=== PATIENT | male | born 1950 | race Caucasian/White ===

== ENCOUNTER 2019-12-25 11:02 | Inpatient (IN) | payer OTHER, MEDICARE ==
[2019-12-25 11:51] VITALS: BMI 25.2
[2019-12-25] MEDS ORDERED: chlordiazePOXIDE HCL 10 MG CAPSULE PO PRN (12:13)
[2019-12-25] MEDS ORDERED: MENTHOL/PHENOL 1 EACH UD MM PRN (12:13)
[2019-12-25] MEDS ORDERED: MAG HYDROX/AL HYDROX/SIMETH 30 ML UNIT-DOSE CUP PO PRN (12:13)
[2019-12-25] MEDS ORDERED: MAGNESIUM HYDROX 2400MG/30ML ORAL SUSPENSION 30 ML CUP PO PRN (12:13)
[2019-12-25] MEDS ORDERED: MAGNESIUM CITRATE 300 ML BOTTLE PO PRN (12:13)
[2019-12-25] MEDS ORDERED: IBUPROFEN 400 MG TABLET (FP) PO PRN (12:13)
[2019-12-25] MEDS ORDERED: ACETAMINOPHEN 325 MG TABLET (FP) PO PRN ×2 (12:13)
[2019-12-25] MEDS ORDERED: ONDANSETRON *ODT* 4 MG TABLET SL ONE (12:13)
[2019-12-25] MEDS: chlordiazePOXIDE HCL 25 MG CAPSULE PO SCH ×2 (14:24→22:03)
[2019-12-25] MEDS: hydrOXYzine PAMOATE 25 MG CAPSULE (FP) PO SCH ×3 (14:24→22:03)
[2019-12-25] MEDS: METHOCARBAMOL 500 MG TABLET PO PRN ×2 (14:24→20:30)
[2019-12-25] MEDS: BISMUTH SUBSALICYLATE 524 MG/30 ML UD PO PRN ×2 (15:17→16:54)
[2019-12-25] MEDS ORDERED: hydrOXYzine PAMOATE 50 MG CAPSULE (FP) PO ONE (20:40)
[2019-12-25] MEDS: THIAMINE HCL 100 MG TABLET (FP) PO SCH (22:03)
[2019-12-25] MEDS: MELATONIN 5 MG TABLETS PO SCH (22:03)
[2019-12-26] MEDS: hydrOXYzine PAMOATE 25 MG CAPSULE (FP) PO SCH ×5 (06:08→21:41)
[2019-12-26] MEDS: chlordiazePOXIDE HCL 25 MG CAPSULE PO SCH ×3 (06:08→21:42)
[2019-12-26] MEDS: TAMSULOSIN HCL 0.4 MG CAP PO SCH (10:23)
[2019-12-26] MEDS: PANTOPRAZOLE 40 MG TABLET PO SCH (10:23)
[2019-12-26] MEDS: PRENATAL VITAMINS W/ FOLIC ACID TABLET (FP) PO SCH (10:24)
[2019-12-26] MEDS: DULoxetine HCL 20 MG CAPSULE.DR PO SCH (10:24)
[2019-12-26] MEDS: FINASTERIDE 5 MG TABLET (FP) PO SCH (10:41)
[2019-12-26] MEDS: BISMUTH SUBSALICYLATE 524 MG/30 ML UD PO PRN (10:43)
[2019-12-26] MEDS: MELATONIN 5 MG TABLETS PO SCH (21:42)
[2019-12-26] MEDS: THIAMINE HCL 100 MG TABLET (FP) PO SCH (21:42)
[2019-12-26] MEDS: METHOCARBAMOL 500 MG TABLET PO PRN (22:16)
[2019-12-27] MEDS: chlordiazePOXIDE 5 MG CAPSULE PO SCH ×3 (05:45→21:32)
[2019-12-27] MEDS: hydrOXYzine PAMOATE 25 MG CAPSULE (FP) PO SCH (05:49)
[2019-12-27] MEDS: TAMSULOSIN HCL 0.4 MG CAP PO SCH (08:40)
[2019-12-27] MEDS: hydrOXYzine PAMOATE 25 MG CAPSULE (FP) PO PRN ×2 (10:10→21:32)
[2019-12-27] MEDS: FINASTERIDE 5 MG TABLET (FP) PO SCH (10:10)
[2019-12-27] MEDS: PANTOPRAZOLE 40 MG TABLET PO SCH (10:11)
[2019-12-27] MEDS: DULoxetine HCL 20 MG CAPSULE.DR PO SCH (10:11)
[2019-12-27] MEDS: PRENATAL VITAMINS W/ FOLIC ACID TABLET (FP) PO SCH (10:14)
[2019-12-27] MEDS: MELATONIN 5 MG TABLETS PO SCH (21:32)
[2019-12-27] MEDS: THIAMINE HCL 100 MG TABLET (FP) PO SCH (21:32)
[2019-12-27] MEDS: METHOCARBAMOL 500 MG TABLET PO PRN (21:33)
[2019-12-28] MEDS ORDERED: chlordiazePOXIDE HCL 10 MG CAPSULE PO PRN
[2019-12-28] MEDS ORDERED: chlordiazePOXIDE HCL 10 MG CAPSULE PO SCH (05:00)
[2019-12-28] MEDS: BISMUTH SUBSALICYLATE 524 MG/30 ML UD PO PRN (06:07)
[2019-12-28 06:37] VITALS: TEMP 98.1
[2019-12-28] MEDS: TAMSULOSIN HCL 0.4 MG CAP PO SCH (08:59)
[2019-12-28] MEDS: PANTOPRAZOLE 40 MG TABLET PO SCH (09:04)
[2019-12-28] MEDS: DULoxetine HCL 20 MG CAPSULE.DR PO SCH (09:04)
[2019-12-28] MEDS: FINASTERIDE 5 MG TABLET (FP) PO SCH (09:05)
[2019-12-28] MEDS: PRENATAL VITAMINS W/ FOLIC ACID TABLET (FP) PO SCH (09:05)
[2019-12-28 09:40] VITALS: BP 127/70; PULSE 85
[2019-12-28 10:43] LABS: HEMATOCRIT 38.4 % (35.4-49); MCH 30.7 pg (25.7-33.7); MCHC 33.9 g/dl (32.0-35.9); MEAN CELL VOLUME 90.7 fl (80-96); MEAN PLT VOLUME 7.8 fl (7.5-11.1); PLATELET COUNT 196 K/MM3 (134-434); RBC 4.23 M/mm3 (4.00-5.60); RDW 16.8 % (11.9-15.9); WHITE BLOOD COUNT 3.5 K/mm3 (4.0-10.0)
[2019-12-28 10:48] LABS: ALBUMIN 3.4 g/dl (3.4-5.0); BILIRUBIN,TOTAL 0.3 mg/dL (0.2-1); BLOOD UREA NITROGEN 15.7 mg/dL (7-18); CALCIUM 8.8 mg/dL (8.5-10.1); CREATININE 1.2 mg/dL (0.55-1.3); POTASSIUM 3.9 mmol/L (3.5-5.1); TOT PROT 6.4 g/dl (6.4-8.2)
[2019-12-29] MEDS ORDERED: chlordiazePOXIDE HCL 10 MG CAPSULE PO ONE (05:00)
== END 2019-12-28 10:04 | disposition home or self-care (01) | DRG 897 ==
LOC: YASAS 11:02 → Y3N 12:13 → Y5N 12-26 17:23
PROVIDERS: ADMIT Allergy & Immunology; ATTEND Allergy & Immunology
PROC: HZ2ZZZZ Detoxification Services for Substance Abuse Treatment (ICD-10-PCS; principal; 2019-12-25)
DX: F10.230 Alcohol dependence with withdrawal, uncomplicated (principal); F33.9 Major depressive disorder, recurrent, unspecified; F10.282 Alcohol dependence with alcohol-induced sleep disorder; F10.24 Alcohol dependence with alcohol-induced mood disorder; K21.9 Gastro-esophageal reflux disease without esophagitis; N40.0 Benign prostatic hyperplasia without lower urinary tract symptoms; M16.0 Bilateral primary osteoarthritis of hip; Z96.641 Presence of right artificial hip joint; Z86.19 Personal history of other infectious and parasitic diseases; Z56.0 Unemployment, unspecified
CPT/HCPCS: 36415; 80053; 85027; 86780; Q0162